=== PATIENT | male | born 1995 | race Caucasian/White ===

== ENCOUNTER 2022-03-18 05:48 | Emergency (ER) | payer OTHER ==
[~2022-03-18] VITALS: Ht 170.2 cm; Wt 88.8 kg
[2022-03-18] MEDS ORDERED: DIPHENHYDRAMINE 50MG CAPSULE PO ONE (06:30)
[2022-03-18] MEDS ORDERED: B50 MT (06:35)
[2022-03-18 06:47] VITALS: BP 106/78
== END 2022-03-18 06:49 | disposition home or self-care (01) ==
LOC: ER 05:48
DX: T78.40XA Allergy, unspecified, initial encounter (principal); X58.XXXA Exposure to other specified factors, initial encounter; R21 Rash and other nonspecific skin eruption; Z88.2 Allergy status to sulfonamides; Z98.890 Other specified postprocedural states; Z93.1 Gastrostomy status
CPT/HCPCS: 99282; Q0163

== ENCOUNTER 2022-06-29 12:51 | Emergency (ER) | payer OTHER ==
[~2022-06-29] VITALS: Ht 167.6 cm; Wt 84.0 kg
[~2022-06-29 12:51] MED LIST: B50 MT
[2022-06-29 13:04] VITALS: BP 121/76
[2022-06-29] MEDS ORDERED: DIPHENHYDRAMINE 50MG/ML VIAL IM STA (17:08)
[2022-06-29] MEDS ORDERED: METHYLPREDNISOLONE SOD SUCC 125 MG/2 ML VIAL IM ONE (17:15)
[2022-06-29] MEDS ORDERED: P20 MT (17:21)
[2022-06-29] MEDS ORDERED: DIPH25CA83 MT (17:21)
== END 2022-06-29 18:23 | disposition home or self-care (01) ==
LOC: ER 12:51
DX: T78.40XA Allergy, unspecified, initial encounter (principal); Z93.0 Tracheostomy status; X58.XXXA Exposure to other specified factors, initial encounter
CPT/HCPCS: 96372; 99284; J1200; J2930